=== PATIENT | male | born 1940 | race Caucasian/White ===

== ENCOUNTER 2016-09-05 20:26 | Emergency (ER) | payer MEDICARE, BC ==
--- NOTE | 2016-09-05 21:03 | EDM.PDOC ---
ED HPI RENAL/ - General Chief Complaint: Genitourinary Problem Stated Complaint: voiding blood Time Seen by Provider: 09/05/16 20:27 Source of Information: Reports: Patient, RN, RN notes reviewed History Limitations: Reports: No limitations - History of Present Illness INITIAL COMMENTS - FREE TEXT/NARRATIVE: Patient presents to the emergency room at [facility] complaining of hematuria. The patient states that he started with dysuria about 3-4 days ago. The patient ignored his symptoms until this evening around 7 PM he noticed blood in the urine. The patient denies any previous history of any UTIs or kidney stones. The patient states he has had increased frequency and urgency. The patient also has bilateral low back pain. No calcium metabolism disorders. No recent Hager catheter or instrumentation. Patient denies any odor to the urine. The patient denies any prostate issues. Timing/Duration: Reports: Getting worse, Gradual onset Quality: Reports: burning Severity: moderate Context: Denies: sick contact, recent surgery, recent trauma, lifting Associated Symptoms: Reports: dysuria, frequency, urgency, blood in urine. Denies: groin pain, testicular pain, penile discharge - Related Data Allergies/ADRs: Allergies Allergy/AdvReac Type Severity Reaction Status Date / Time No Known Allergies Allergy Verified 09/05/16 20:31 Home Meds: Home Meds Aspirin [Adult Low Dose Aspirin EC] 81 mg PO DAILY 09/05/16 [History] Enalapril [Vasotec] 0.5 mg PO BID 09/05/16 [History] Hydrochlorothiazide 0.5 tab PO DAILY 09/05/16 [History] Pravastatin [Pravachol] 1 tab PO DAILY 09/05/16 [History] amLODIPine Besylate [Amlodipine Besylate] 5 mg PO DAILY 09/05/16 [History] traZODone HCl [Trazodone HCl] 1 tab PO BEDTIME 09/05/16 [History] Past Medical History Cardiovascular History: Reports: High cholesterol, Hypertension Oncologic (Cancer) History: Reports: Malignant melanoma Dermatologic History: Reports: Melanoma - Past Surgical History Cardiovascular Surgical History: Reports: Coronary artery bypass GI Surgical History: Reports: Appendectomy Social & Family History - Tobacco Use Smoking Status *Q: Former Smoker Used Tobacco, but Quit: Yes Month Tobacco Last Used: ? Second Hand Smoke Exposure: No ED ROS GENERAL - Review of Systems Review Of Systems: See Below Constitutional: Denies: fever, chills, weakness Respiratory: Denies: Shortness of Breath, Cough Cardiovascular: Denies: Chest pain, Palpitations GI/Abdominal: Denies: Abdominal pain, Nausea, Vomiting : Reports: dysuria, frequency, hematuria, urgency. Denies: discharge, flank pain, urinary retention Skin: Reports: no symptoms Neurological: Reports: No Symptoms ED EXAM, RENAL/ - Physical Exam Exam: See Below Exam Limited By: No limitations General Appearance: alert, no apparent distress Respiratory/Chest: no respiratory distress, lungs clear, normal breath sounds Cardiovascular: regular rate, rhythm GI/Abdominal: normal bowel sounds, soft, non tender (Male) Exam: Deferred Neurological: alert, oriented Skin Exam: Warm, Dry, Intact, Normal color, No rash Course - Vital Signs Last Recorded V/S: Last Vital Signs Temp 36.9 C 09/05/16 20:35 Pulse 64 09/05/16 22:10 Resp 18 09/05/16 22:10 BP 177/82 H 09/05/16 22:10 Pulse Ox 91 L 09/05/16 22:10 - Orders/Labs/Meds Orders: Active Orders 24 hr Category Date Time Status Abdomen Pelvis wo Cont [CT] Stat Exams 09/05/16 21:32 Taken Labs: Laboratory Tests 09/05/16 09/05/16 09/05/16 Range/Units 20:51 21:04 21:04 WBC 7.9 (4.0-10.0) x10^3/uL RBC 5.22 (4.5-6.0) x10^6/uL Hgb 15.6 (14.0-18.0) g/dL Hct 46.6 (40.0-52.0) % MCV 89.3 (78.0-93.0) fL MCH 29.9 (26.0-32.0) pg MCHC 33.5 (32.0-36.0) g/dL RDW Coeff of Ronn 13.3 (10.0-15.0) % Plt Count 168 (130-400) x10^3/uL Neut % (Auto) 67.8 (50.0-80.0) % Lymph % (Auto) 19.9 L (25.0-50.0) % [place] % (Auto) 6.2 (2.0-11.0) % Eos % (Auto) 5.8 H (0.0-4.0) % Baso % (Auto) 0.3 (0.2-1.2) % Sodium 143 (136-145) mmol/L Potassium 3.5 (3.5-5.1) mmol/L Chloride 107 (98-107) mmol/L Carbon Dioxide 26 (21-32) mmol/L BUN 25 H (7-18) mg/dL Creatinine 1.3 (0.70-1.30) mg/dL Est Cr Clr Drug Dosing 39.85 mL/min Estimated GFR (MDRD) 54 Glucose 131 H (74-106) mg/dL Calcium 8.2 L (8.5-10.1) mg/dL Urine Color Red H (YELLOW) Urine Appearance Turbid H (CLEAR) Urine pH 6.0 (5.0-8.0) Ur Specific [place] 1.030 Urine Protein 100 H (NEGATIVE) mg/dL Urine Glucose (UA) Negative (NEGATIVE) mg/dL Urine Ketones Negative (NEGATIVE) mg/dL Urine Occult Blood Large H (NEGATIVE) Urine Nitrite Negative (NEGATIVE) Urine Bilirubin Small H (NEGATIVE) Urine Urobilinogen 0.2 (0.2) EU/dL Ur Leukocyte Esterase Small H (NEGATIVE) Urine RBC Packed (NOT SEEN) /HPF Urine Red Cell Clumps Present Urine WBC 0-5 (NOT SEEN) /HPF Ur Squamous Epith Cells Not seen (NEGATIVE) /HPF Amorphous Sediment Rare Urine Bacteria Rare (NEGATIVE) /HPF Urine Mucus Rare H (NEGATIVE) /LPF - Radiology Interpretation Free Text/Narrative:: See scanned report CT Results Date: 09/05/16 CT Results Time: 22:19 Departure - Departure Time of Disposition: 22:24 Disposition: Home, Self-Care 01 Condition: good Clinical Impression: Bladder mass Referrals: Reina Soares DO [Primary Care Provider] - Forms: ED Department Discharge - Problem List Review Problem List Initiated/Reviewed/Updated: Yes - My Orders Last 24 Hours: My Active Orders 09/05/16 21:32 Abdomen Pelvis wo Cont [CT] Stat - Assessment/Plan Last 24 Hours: My Active Orders 09/05/16 21:32 Abdomen Pelvis wo Cont [CT] Stat
[2016-09-05 22:11] VITALS: BP 177/82
== END 2016-09-05 22:38 | disposition home or self-care (01) ==
LOC: VM.ED 20:26
DX: N32.89 Other specified disorders of bladder (principal); E78.00 Pure hypercholesterolemia, unspecified; I10 Essential (primary) hypertension; Z87.891 Personal history of nicotine dependence; Z90.49 Acquired absence of other specified parts of digestive tract
CPT/HCPCS: 36415; 74176; 80048; 81001; 85025; 99282-GF; 99284

== ENCOUNTER 2017-07-10 14:56 | Emergency (ER) | payer MEDICARE, BC ==
[2017-07-10] MEDS ORDERED: GI Cocktail Oral Solution 30 ML PO ONE (15:18)
[2017-07-10] MEDS ORDERED: Sodium Chloride 0.9% 10 ML Syringe FLUSH PRN (15:18)
[2017-07-10] MEDS ORDERED: Iopamidol 612 MG/ML 100 ML Bottle IVPUSH ONE (17:08)
[2017-07-10] MEDS ORDERED: HYDROmorphone 1 MG/ML Syringe IVPUSH ONE (18:21)
[2017-07-10] MEDS ORDERED: Ondansetron 4 MG/2 ML SDV IVPUSH ONE (18:21)
[2017-07-10] MEDS ORDERED: Heparin Sodium/0.45% NaCl 25,000 UNITS/500 ML BAG IV STA (18:43)
[2017-07-10 18:45] VITALS: BP 147/84
[2017-07-10] MEDS ORDERED: Heparin Sodium 5,000 Units/ML Vial IVPUSH ONE (18:45)
[2017-07-10] MEDS ORDERED: Metoclopramide 10 MG/2 ML SDV IVPUSH ONE (18:51)
--- NOTE | 2017-07-10 19:23 | EDM.PDOC ---
ED HPI GENERAL MEDICAL PROBLEM - General Chief Complaint: Abdominal Pain Stated Complaint: abd pain Time Seen by Provider: 07/10/17 15:07 Source of Information: Reports: Patient History Limitations: Reports: No Limitations - History of Present Illness INITIAL COMMENTS - FREE TEXT/NARRATIVE: Pt. presents to ER with complaints of upper abdominal pain, radiating circumfrentially into his mid back. Pt. states that this discomfort started at approx. [id number] this AM. He states that the discomfort does not radiate elsewhere. He is not short of breath. He denies any fever or chills. Denies any substernal chest pain. Pt. has a history of CA wish CABG in 1997. He states that he has some CHF. He states that he is nauseated but denies vomiting. State that the discomfort "sharp, stabbing" pain. He denies any melena, hematochezia, or hematemesis. Denies any jaundice. Onset: Today Onset Date: 07/10/17 Onset Time: 09:00 Location: Reports: Abdomen Severity: Severe Improves with: Reports: Rest Worsens with: Reports: Movement Associated Symptoms: Reports: Nausea/Vomiting. Denies: Diaphoresis, Fever/ Chills, Shortness of Breath Bilateral Upper Abdomen Pain Score (Numeric/FACES): 7 - Related Data Allergies Allergy/AdvReac Type Severity Reaction Status Date / Time atorvastatin [From Lipitor] Allergy Other Verified 07/10/17 15:29 morphine Allergy Hives Verified 07/10/17 15:29 Home Meds: Home Meds Aspirin [Adult Low Dose Aspirin EC] 81 mg PO DAILY 09/05/16 [History] Enalapril [Vasotec] 10 mg PO BID 09/05/16 [History] Hydrochlorothiazide 12.5 mg PO DAILY 09/05/16 [History] Pravastatin [Pravachol] 1 tab PO BEDTIME 09/05/16 [History] amLODIPine Besylate [Amlodipine Besylate] 5 mg PO DAILY 09/05/16 [History] traZODone HCl [Trazodone HCl] 1 tab PO BEDTIME 09/05/16 [History] Clindamycin Phosphate [Cleocin T 1% Gel] 1 applic TOP DAILY 07/10/17 [History] Loratadine [Claritin] 10 mg PO DAILY PRN 07/10/17 [History] Umeclidinium [place] [Incruse Ellipta] 1 puff IH DAILY 07/10/17 [History] Past Medical History HEENT History: Reports: Allergic Rhinitis Cardiovascular History: Reports: Bypass, CAD, High Cholesterol, Hypertension, CA Respiratory History: Reports: COPD Gastrointestinal History: Reports: Diverticulosis, GERD Genitourinary History: Reports: Other (See Below) Other Genitourinary History: Prostatitis Musculoskeletal History: Reports: RA Oncologic (Cancer) History: Reports: Bladder, Malignant Melanoma, Other (See Below) 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 Dermatologic History: Reports: Melanoma - Past Surgical History Cardiovascular Surgical History: Reports: Coronary Artery Bypass GI Surgical History: Reports: Appendectomy Social & Family History - Tobacco Use Smoking Status *Q: Former Smoker Used Tobacco, but Quit: Yes Month Tobacco Last Used: 20 years ago Second Hand Smoke Exposure: No - Recreational Drug Use Recreational Drug Use: No ED ROS GENERAL - Review of Systems Review Of Systems: See Below Constitutional: Reports: No Symptoms HEENT: Reports: No Symptoms Respiratory: Reports: No Symptoms Cardiovascular: Reports: No Symptoms Endocrine: Reports: No Symptoms GI/Abdominal: Reports: Abdominal Pain : Reports: No Symptoms Musculoskeletal: Reports: No Symptoms Skin: Reports: No Symptoms Neurological: Reports: No Symptoms Psychiatric: Reports: No Symptoms Hematologic/Lymphatic: Reports: No Symptoms, Other (No history of hypercoaguable state) Immunologic: Reports: No Symptoms ED EXAM, GENERAL - Physical Exam Exam: See Below Exam Limited By: No Limitations General Appearance: Alert, WD/WN, No Apparent Distress Ears: Normal External Exam, Normal Canal, Hearing Grossly Normal, Normal TMs Nose: Normal Inspection, Normal Mucosa, No Blood Throat/Mouth: Normal Inspection, Normal Lips, Normal Teeth, Normal Gums, Normal Oropharynx, Normal Voice, No Airway Compromise Head: Atraumatic, Normocephalic Neck: Normal Inspection, Supple, Non-Tender, Full Range of Motion Respiratory/Chest: No Respiratory Distress, Lungs Clear, Normal Breath Sounds, No Accessory Muscle Use, Chest Non-Tender Cardiovascular: Normal Peripheral Pulses, Regular Rate, Rhythm, No Edema, No Gallop, No JVD, No Murmur, No Rub Peripheral Pulses: 3+: Femoral (L), Femoral (R) GI/Abdominal: Soft, No Distention, No Abnormal Bruit, Tender, Abnormal Bowel Sounds (diminished). No: Rebound (Male) Exam: Deferred Rectal (Males) Exam: Normal Exam, Normal Rectal Tone, Prostate Normal Back Exam: Normal Inspection, Full Range of Motion, NT Extremities: Normal Inspection, Normal Range of Motion, Non-Tender, Normal Capillary Refill, No Pedal Edema Neurological: Alert, Oriented, CN II-XII Intact, Normal Cognition, Normal Gait, Normal Reflexes, No Motor/Sensory Deficits Psychiatric: Normal Affect, Normal Mood Skin Exam: Warm, Dry, Intact, Normal Color, No Rash Lymphatic: No Adenopathy EKG INTERPRETATION Rhythm: NSR [place]: Normal P-Wave: Present QRS: Normal ST-T: Normal QT: Normal Course - Vital Signs Last Recorded V/S: Last Vital Signs Temp 36.8 C 07/10/17 15:03 Pulse 60 07/10/17 18:44 Resp 15 07/10/17 18:44 BP 147/84 H 07/10/17 18:44 Pulse Ox 90 L 07/10/17 18:44 - Orders/Labs/Meds Orders: Active Orders 24 hr Category Date Time Status EKG Documentation Completion [RC] STAT Care 07/10/17 15:18 Active Abdomen Series w Chest 1V [CR] Stat Exams 07/10/17 15:16 Taken Chest Abdomen Pelvis w Cont [CT] Stat Exams 07/10/17 16:24 Taken CBC W/O DIFF,HEMOGRAM [HEME] Q3D Lab 07/11/17 07:00 Ordered CBC W/O DIFF,HEMOGRAM [HEME] Q3D Lab 07/14/17 07:00 Ordered CBC W/O DIFF,HEMOGRAM [HEME] Q3D Lab 07/17/17 07:00 Ordered CBC W/O DIFF,HEMOGRAM [HEME] Q3D Lab 07/20/17 07:00 Ordered CBC W/O DIFF,HEMOGRAM [HEME] Q3D Lab 07/23/17 07:00 Ordered CBC W/O DIFF,HEMOGRAM [HEME] Q3D Lab 07/26/17 07:00 Ordered CBC W/O DIFF,HEMOGRAM [HEME] Q3D Lab 07/29/17 07:00 Ordered Heparin Sodium/0.45% NaCl [Heparin 25,000 Units in 1/2 Med 07/10/17 18:43 Active NS 500 ML] 25,000 units in 500 ml IV NOW Sodium Chloride 0.9% [Saline Flush] Med 07/10/17 15:18 Active 10 ml FLUSH ASDIRECTED PRN Peripheral IV Insertion Adult [OM.PC] Routine Oth 07/10/17 15:19 Ordered Medication Orders Heparin Sodium/Sodium Chloride (Heparin 25,000 Units In 1/2 Ns 500 Ml) 25,000 units in 500 mls @ 20 mls/hr IV NOW STA PRN Reason: Protocol Stop: 07/11/17 19:42 Last Admin: 07/10/17 19:09 Dose: 20 mls/hr, 20 mls/hr Sodium Chloride (Saline Flush) 10 ml FLUSH ASDIRECTED PRN PRN Reason: Keep Vein Open Last Admin: 07/10/17 15:52 Dose: 10 ml Labs: Laboratory Tests 07/10/17 07/10/17 07/10/17 Range/Units 15:52 15:52 15:52 WBC 8.1 (4.0-10.0) x10^3/uL RBC 5.44 (4.5-6.0) x10^6/uL Hgb 17.0 (14.0-18.0) g/dL Hct 49.1 (40.0-52.0) % MCV 90.3 (78.0-93.0) fL MCH 31.3 (26.0-32.0) pg MCHC 34.6 (32.0-36.0) g/dL RDW Coeff of Ronn 13.1 (10.0-15.0) % Plt Count 170 (130-400) x10^3/uL Neut % (Auto) 67.3 (50.0-80.0) % Lymph % (Auto) 22.6 L (25.0-50.0) % [place] % (Auto) 4.1 (2.0-11.0) % Eos % (Auto) 5.9 H (0.0-4.0) % Baso % (Auto) 0.1 L (0.2-1.2) % PT 11.4 (9.8-11.8) SEC INR 1.1 L (2.0-3.5) Sodium 142 (136-145) mmol/L Potassium 3.7 (3.5-5.1) mmol/L Chloride 107 (98-107) mmol/L Carbon Dioxide 25 (21-32) mmol/L BUN 17 (7-18) mg/dL Creatinine 1.2 (0.70-1.30) mg/dL Est Cr Clr Drug Dosing 49.88 mL/min Estimated GFR (MDRD) 59 Glucose 117 H (74-106) mg/dL Calcium 8.6 (8.5-10.1) mg/dL Corrected Calcium 9.00 (8.5-10.1) mg/dL Total Bilirubin 0.7 (0.2-1.0) mg/dL AST 24 (15-37) U/L ALT 47 (16-63) U/L Alkaline Phosphatase 45 L (46-116) U/L POC Troponin I (0.00-0.08) ng/mL C-Reactive Protein 0.4 (<=0.9) mg/dL Total Protein 7.0 (6.4-8.2) g/dL Albumin 3.5 (3.4-5.0) g/dL Globulin 3.5 Albumin/Globulin Ratio 1.00 Amylase (25-115) U/L Lipase (73-393) U/L 07/10/17 07/10/17 Range/Units 15:52 15:58 WBC (4.0-10.0) x10^3/uL RBC (4.5-6.0) x10^6/uL Hgb (14.0-18.0) g/dL Hct (40.0-52.0) % MCV (78.0-93.0) fL MCH (26.0-32.0) pg MCHC (32.0-36.0) g/dL RDW Coeff of [place] (10.0-15.0) % Plt Count (130-400) x10^3/uL Neut % (Auto) (50.0-80.0) % Lymph % (Auto) (25.0-50.0) % [place] % (Auto) (2.0-11.0) % Eos % (Auto) (0.0-4.0) % Baso % (Auto) (0.2-1.2) % PT (9.8-11.8) SEC INR (2.0-3.5) Sodium (136-145) mmol/L Potassium (3.5-5.1) mmol/L Chloride (98-107) mmol/L Carbon Dioxide (21-32) mmol/L BUN (7-18) mg/dL Creatinine (0.70-1.30) mg/dL Est Cr Clr Drug Dosing mL/min Estimated GFR (MDRD) Glucose (74-106) mg/dL Calcium (8.5-10.1) mg/dL Corrected Calcium (8.5-10.1) mg/dL Total Bilirubin (0.2-1.0) mg/dL AST (15-37) U/L ALT (16-63) U/L Alkaline Phosphatase (46-116) U/L POC Troponin I 0.02 (0.00-0.08) ng/mL C-Reactive Protein (<=0.9) mg/dL Total Protein (6.4-8.2) g/dL Albumin (3.4-5.0) g/dL Globulin Albumin/Globulin Ratio Amylase 91 (25-115) U/L Lipase 77 (73-393) U/L Meds: Medications Generic Name Dose Route Start Last Admin Trade Name Luis PRN Reason Stop Dose Admin Heparin Sodium/Sodium Chloride 25,000 units in 500 mls @ 20 mls/hr 07/10/17 18 :43 07/10/17 19:09 Heparin 25,000 Units In 1/2 Ns 500 Ml IV 07/11/17 19:42 20 mls/hr NOW STA 20 mls/hr Protocol Administration Sodium Chloride 10 ml 07/10/17 15:18 07/10/17 15:52 Saline Flush FLUSH 10 ml ASDIRECTED PRN Administration Keep Vein Open Discontinued Medications Generic Name Dose Route Start Last Admin Trade Name Luis PRN Reason Stop Dose Admin Al Hydroxide/Mg Hydroxide 30 ml 07/10/17 15:18 07/10/17 15:38 Gi Cocktail PO 07/10/17 15:19 30 ml ONETIME ONE Administration Heparin Sodium (Porcine) 4,000 units 07/10/17 18:45 07/10/17 18:59 Heparin Sodium IVPUSH 07/10/17 18:46 4,000 units .BOLUS ONE Administration Hydromorphone HCl 1 mg 07/10/17 18:21 07/10/17 18:30 Dilaudid IVPUSH 07/10/17 18:22 1 mg ONETIME ONE Administration Iopamidol 100 ml 07/10/17 17:08 07/10/17 17:40 Isovue-300 (61%) IVPUSH 07/10/17 17:09 100 ml ONETIME ONE Administration Metoclopramide HCl 5 mg 07/10/17 18:51 07/10/17 18:56 Reglan IVPUSH 07/10/17 18:52 5 mg ONETIME ONE Administration Ondansetron HCl 4 mg 07/10/17 18:21 07/10/17 18:27 Zofran IVPUSH 07/10/17 18:22 4 mg ONETIME ONE Administration - Radiology Interpretation Free Text/Narrative:: Ileus, evidence of splenic infarct. 3.5cm AAA. Departure - Departure Time of Disposition: 19:29 Disposition: Home, Self-Care 01 Condition: Serious Clinical Impression: Splenic infarct - Discharge Information Referrals: Reina Soares DO [Primary Care Provider] - Forms: ED Department Discharge, Interfacility Transfer EMTALA - My Orders Last 24 Hours: My Active Orders 07/10/17 15:16 Abdomen Series w Chest 1V [CR] Stat 07/10/17 15:18 EKG Documentation Completion [RC] STAT Sodium Chloride 0.9% [Saline Flush] 10 ml FLUSH ASDIRECTED PRN 07/10/17 15:19 Peripheral IV Insertion Adult [OM.PC] Routine 07/10/17 16:24 Chest Abdomen Pelvis w Cont [CT] Stat 07/10/17 18:43 Heparin Sodium/0.45% NaCl [Heparin 25,000 Units in 1/2 NS 500 ML] 25,000 units in 500 ml IV NOW 07/11/17 07:00 CBC W/O DIFF,HEMOGRAM [HEME] Q3D 07/14/17 07:00 CBC W/O DIFF,HEMOGRAM [HEME] Q3D 07/17/17 07:00 CBC W/O DIFF,HEMOGRAM [HEME] Q3D 07/20/17 07:00 CBC W/O DIFF,HEMOGRAM [HEME] Q3D 07/23/17 07:00 CBC W/O DIFF,HEMOGRAM [HEME] Q3D 07/26/17 07:00 CBC W/O DIFF,HEMOGRAM [HEME] Q3D 07/29/17 07:00 CBC W/O DIFF,HEMOGRAM [HEME] Q3D - Assessment/Plan Last 24 Hours: My Active Orders 07/10/17 15:16 Abdomen Series w Chest 1V [CR] Stat 07/10/17 15:18 EKG Documentation Completion [RC] STAT Sodium Chloride 0.9% [Saline Flush] 10 ml FLUSH ASDIRECTED PRN 07/10/17 15:19 Peripheral IV Insertion Adult [OM.PC] Routine 07/10/17 16:24 Chest Abdomen Pelvis w Cont [CT] Stat 07/10/17 18:43 Heparin Sodium/0.45% NaCl [Heparin 25,000 Units in 1/2 NS 500 ML] 25,000 units in 500 ml IV NOW 07/11/17 07:00 CBC W/O DIFF,HEMOGRAM [HEME] Q3D 07/14/17 07:00 CBC W/O DIFF,HEMOGRAM [HEME] Q3D 07/17/17 07:00 CBC W/O DIFF,HEMOGRAM [HEME] Q3D 07/20/17 07:00 CBC W/O DIFF,HEMOGRAM [HEME] Q3D 07/23/17 07:00 CBC W/O DIFF,HEMOGRAM [HEME] Q3D 07/26/17 07:00 CBC W/O DIFF,HEMOGRAM [HEME] Q3D 07/29/17 07:00 CBC W/O DIFF,HEMOGRAM [HEME] Q3D
== END 2017-07-10 19:32 | disposition home or self-care (01) ==
LOC: VM.ED 14:56
DX: I74.8 Embolism and thrombosis of other arteries (principal); I10 Essential (primary) hypertension; I25.10 Atherosclerotic heart disease of native coronary artery without angina pectoris; E78.00 Pure hypercholesterolemia, unspecified; J44.9 Chronic obstructive pulmonary disease, unspecified; K21.9 Gastro-esophageal reflux disease without esophagitis; Z95.1 Presence of aortocoronary bypass graft; Z87.891 Personal history of nicotine dependence; Z79.82 Long term (current) use of aspirin; Z79.2 Long term (current) use of antibiotics; Z79.899 Other long term (current) drug therapy; Z88.5 Allergy status to narcotic agent; Z88.8 Allergy status to other drugs, medicaments and biological substances
CPT/HCPCS: 36415; 71260; 74022; 74177; 80053; 82150; 83690; 84484; 85025; 85610; 86140; 93005; 96365; 96375; 96376; 99285; A9270-GY; J1170; J1644; J2405; J2765; J7050; Q9967

== ENCOUNTER 2020-04-06 15:16 | Emergency (ER) | payer MEDICARE, BC ==
[2020-04-06] MEDS ORDERED: Sodium Chloride 0.9% 10 ML Syringe FLUSH PRN (15:19)
--- NOTE | 2020-04-06 15:19 | EDM.PDOC ---
ED HPI GENERAL MEDICAL PROBLEM - General Stated Complaint: COVID SYMPTOMS Time Seen by Provider: 04/06/20 15:19 Source of Information: Reports: Patient History Limitations: Reports: No Limitations - History of Present Illness INITIAL COMMENTS - FREE TEXT/NARRATIVE: Patient comes emergency department today with complaints of generalized weakness. This patient reports about 3 weeks ago he was tested for Covid after he was exposed to one of his friends that had it. His test was negative although he was tested only a couple of days after his exposure to his friend. He has had continued weakness over the past 3 weeks. He has had no other symptoms other than weakness He has no cough no shortness of breath sinus congestion drainage. No difficulty breathing. No dizziness no syncope no palpitation. No pain in his chest. No fever no chills. No abdominal pain no nausea or vomiting. No hematuria dysuria or urinary frequency. He really has no appetite. He ate a banana and a half of a sandwich yesterday. He drinks about 1 to 2 glasses of water a day. He has been seen in the clinic 2 times in the last couple of weeks for the same symptoms. He reports that he did not have any laboratory evaluation. He was placed on doxycycline because he is weak. He did not get his influenza vaccine this year. He has not been eating or drinking for weeks because he just has no appetite. - Related Data Allergies Allergy/AdvReac Type Severity Reaction Status Date / Time atorvastatin [From Lipitor] Allergy Other Verified 04/06/20 18:06 morphine Allergy Hives Verified 04/06/20 18:06 Home Meds: Home Meds Aspirin [Adult Low Dose Aspirin EC] 81 mg PO DAILY 09/05/16 [History] Enalapril [Vasotec] 20 mg PO BID 09/05/16 [History] amLODIPine Besylate [Amlodipine Besylate] 2.5 mg PO DAILY 09/05/16 [History] traZODone HCl [Trazodone HCl] 1 tab PO BEDTIME 09/05/16 [History] Clindamycin Phosphate [Cleocin T 1% Gel] 1 applic TOP DAILY 07/10/17 [History] Loratadine [Claritin] 10 mg PO DAILY PRN 07/10/17 [History] Cholecalciferol (Vitamin D3) [Vitamin D3] 1,000 unit PO DAILY 04/06/20 [History] Fish Oil/[place]-3 Fatty Acids [Fish Oil 1,000 MG] 1 each PO DAILY 04/06/20 [History] Omeprazole 20 mg PO DAILY 04/06/20 [History] Rosuvastatin [Crestor] 10 mg PO DAILY 04/06/20 [History] Triamterene/Hydrochlorothiazid [Triamterene-HCTZ 37.5-25 MG] 1 tab PO DAILY 04/06/20 [History] Warfarin [Coumadin] 2.5 mg PO ASDIRECTED 04/06/20 [History] Past Medical History HEENT History: Reports: Allergic Rhinitis Cardiovascular History: Reports: Bypass, CAD, High Cholesterol, Hypertension, NM Respiratory History: Reports: COPD Gastrointestinal History: Reports: Diverticulosis, GERD Genitourinary History: Reports: Other (See Below) Other Genitourinary History: Prostatitis Musculoskeletal History: Reports: RA Oncologic (Cancer) History: Reports: Bladder, Malignant Melanoma, Other (See Below) 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 Dermatologic History: Reports: Melanoma - Past Surgical History Cardiovascular Surgical History: Reports: Coronary Artery Bypass GI Surgical History: Reports: Appendectomy ED ROS GENERAL - Review of Systems Review Of Systems: Comprehensive ROS is negative, except as noted in HPI. ED EXAM, GENERAL - Physical Exam Exam: See Below Exam Limited By: No Limitations General Appearance: Alert, WD/WN, No Apparent Distress Eye Exam: Bilateral Eye: EOMI Ears: Normal External Exam Nose: Normal Inspection, Normal Mucosa Throat/Mouth: Normal Inspection, Normal Lips, Normal Oropharynx, Normal Voice Head: Atraumatic, Normocephalic Neck: Normal Inspection, Supple, Non-Tender, Full Range of Motion Respiratory/Chest: No Respiratory Distress, Lungs Clear, Normal Breath Sounds, No Accessory Muscle Use, Chest Non-Tender Cardiovascular: Normal Peripheral Pulses, Regular Rate, Rhythm Peripheral Pulses: 2+: Radial (L), Radial (R), Posterior Tibial (L), Posterior Tibial (R), Dorsalis Pedis (L), Dorsalis Pedis (R) GI/Abdominal: Normal Bowel Sounds, Soft, Non-Tender, No Distention, No Mass, Pelvis Stable (Male) Exam: Deferred Rectal (Males) Exam: Deferred Back Exam: Normal Inspection, Full Range of Motion Extremities: Normal Inspection, Normal Range of Motion, Normal Capillary Refill Neurological: Alert, Oriented, CN II-XII Intact, Normal Cognition, Normal Gait, No Motor/Sensory Deficits Psychiatric: Normal Affect, Normal Mood Skin Exam: Warm, Dry, Intact, Normal Color, No Rash #1 Interpretation EKG Date: 04/06/20 Time: 15:53 Rhythm: NSR Rate (Beats/Min): 67 [place]: Normal P-Wave: Present QRS: Normal ST-T: Normal QT: Normal Comparison: No Change Course - Vital Signs Last Recorded V/S: Last Vital Signs Temp 98.1 F 04/06/20 15:20 Pulse 60 04/06/20 18:25 Resp 16 04/06/20 18:25 BP 130/68 04/06/20 18:25 Pulse Ox 93 L 04/06/20 18:25 - Orders/Labs/Meds Labs: Laboratory Tests 04/06/20 04/06/20 04/06/20 Range/Units 15:31 15:50 15:50 WBC 5.3 (4.0-10.0) x10^3/uL RBC 4.31 L (4.5-6.0) x10^6/uL Hgb 14.1 D (14.0-18.0) g/dL Hct 41.9 (40.0-52.0) % MCV 97.2 H D (78.0-93.0) fL MCH 32.7 H (26.0-32.0) pg MCHC 33.7 (32.0-36.0) g/dL RDW Coeff of Ronn 13.6 (10.0-15.0) % Plt Count 269 D (130-400) x10^3/uL Neut % (Auto) 52.5 (50.0-80.0) % Lymph % (Auto) 30.6 (25.0-50.0) % [place] % (Auto) 16.1 H (2.0-11.0) % Eos % (Auto) 0.2 (0.0-4.0) % Baso % (Auto) 0.6 (0.2-1.2) % Sodium 138 (136-145) mmol/L Potassium 3.6 (3.5-5.1) mmol/L Chloride 101 (98-107) mmol/L Carbon Dioxide 27 (21-32) mmol/L Anion Gap 13.6 (10-20) mmol/L BUN 47 H D (7-18) mg/dL Creatinine 2.0 H (0.70-1.30) mg/dL Est Cr Clr Drug Dosing TNP Estimated GFR (MDRD) 32 Glucose 107 H (74-106) mg/dL Lactic Acid (0.4-2.0) mmol/L Calcium 9.2 (8.5-10.1) mg/dL Corrected Calcium 10.00 (8.5-10.1) mg/dL Total Bilirubin 0.6 (0.2-1.0) mg/dL AST 23 (15-37) U/L ALT 33 (16-63) U/L Alkaline Phosphatase 36 L (46-116) U/L Troponin I < 0.017 (<=0.056) ng/mL C-Reactive Protein 3.3 H (<=0.9) mg/dL Total Protein 7.2 (6.4-8.2) g/dL Albumin 3.0 L (3.4-5.0) g/dL Globulin 4.2 Albumin/Globulin Ratio 0.71 Urine Color (YELLOW) Urine Appearance (CLEAR) Urine pH (5.0-8.0) Ur Specific [place] Urine Protein (NEGATIVE) mg/dL Urine Glucose (UA) (NEGATIVE) mg/dL Urine Ketones (NEGATIVE) mg/dL Urine Occult Blood (NEGATIVE) Urine Nitrite (NEGATIVE) Urine Bilirubin (NEGATIVE) Urine Urobilinogen (0.2) EU/dL Ur Leukocyte Esterase (NEGATIVE) SARS CoV-2 RNA Rapid TONE Negative (NEGATIVE) 04/06/20 04/06/20 Range/Units 15:50 15:55 WBC (4.0-10.0) x10^3/uL RBC (4.5-6.0) x10^6/uL Hgb (14.0-18.0) g/dL Hct (40.0-52.0) % MCV (78.0-93.0) fL MCH (26.0-32.0) pg MCHC (32.0-36.0) g/dL RDW Coeff of Ronn (10.0-15.0) % Plt Count (130-400) x10^3/uL Neut % (Auto) (50.0-80.0) % Lymph % (Auto) (25.0-50.0) % [place] % (Auto) (2.0-11.0) % Eos % (Auto) (0.0-4.0) % Baso % (Auto) (0.2-1.2) % Sodium (136-145) mmol/L Potassium (3.5-5.1) mmol/L Chloride (98-107) mmol/L Carbon Dioxide (21-32) mmol/L Anion Gap (10-20) mmol/L BUN (7-18) mg/dL Creatinine (0.70-1.30) mg/dL Est Cr Clr Drug Dosing Estimated GFR (MDRD) Glucose (74-106) mg/dL Lactic Acid 1.6 (0.4-2.0) mmol/L Calcium (8.5-10.1) mg/dL Corrected Calcium (8.5-10.1) mg/dL Total Bilirubin (0.2-1.0) mg/dL AST (15-37) U/L ALT (16-63) U/L Alkaline Phosphatase (46-116) U/L Troponin I (<=0.056) ng/mL C-Reactive Protein (<=0.9) mg/dL Total Protein (6.4-8.2) g/dL Albumin (3.4-5.0) g/dL Globulin Albumin/Globulin Ratio Urine Color Dark yellow H (YELLOW) Urine Appearance Slightly cloudy H (CLEAR) Urine pH 5.5 (5.0-8.0) Ur Specific [place] 1.020 Urine Protein Negative (NEGATIVE) mg/dL Urine Glucose (UA) Negative (NEGATIVE) mg/dL Urine Ketones Negative (NEGATIVE) mg/dL Urine Occult Blood Negative (NEGATIVE) Urine Nitrite Negative (NEGATIVE) Urine Bilirubin Negative (NEGATIVE) Urine Urobilinogen 0.2 (0.2) EU/dL Ur Leukocyte Esterase Negative (NEGATIVE) SARS CoV-2 RNA Rapid TONE (NEGATIVE) Meds: Medications Discontinued Medications Generic Name Dose Route Start Last Admin Trade Name Freq PRN Reason Stop Dose Admin Lactated Ringer's 1,000 mls @ 999 mls/hr 04/06/20 16:05 04/06/20 16:05 Ringers, Lactated IV 04/06/20 17:05 999 mls/hr ONETIME ONE Administration Sodium Chloride 10 ml 04/06/20 15:19 Saline Flush FLUSH ASDIRECTED PRN Keep Vein Open - Re-Assessments/Exams Free Text/Narrative Re-Assessment/Exam: The patient is clearly stress at this time. He appears mildly toxic. Laboratory evaluation to include swabs for influenza and Covid. His EKG is unremarkable. Werner virus is negative. Influenza is positive. Blood cell count 5.3 with hemoglobin 14.1 and platelet of 69, Sodium potassium are normal. His creatinine is 3.0 and he appears that his baseline is about 1.2-1.4. He has a current BUN of 47. Liver enzymes are rather unremarkable. Troponin less than 0.017. C-reactive protein 3.3. Urinalysis negative for infectious process. The patient was started with an IV LR 250 mill bolus and then continued over the next multiple hours. He was monitored closely in the emergency department. Maintained the same physical symptoms vital signs of as similar to arrival. He was able to urinate while he was in the ER. He drank multiple glasses of water. He received an entire liter of LR. He does feel quite a bit better and not as weak. He would like to go home. I did offer observation for him overnight to ensure that he has good hydration as well as repeat his labs to show that he has improvement of his acute kidney injury. He really does not want to do this tonight. Which I think is appropriate as he is not been drinking fluids at home. We will discharge him home with close follow-up with primary care. I discussed at length importance for him not only eat small frequent meals but also to ensure that he is drinking plenty of fluids. He is comfortable with this plan his questions were answered. I also advised him that it would be prudent for him to get a yearly influenza vaccine to prevent this in the future. Departure - Departure Time of Disposition: 19:24 Disposition: Home, Self-Care 01 Clinical Impression: Influenza B, LIZ (acute kidney injury), Dehydration - Discharge Information Instructions: Influenza, Adult, [id number], Dehydration, Adult, [id number], Dehydration, Elderly, [id number] Referrals: Reina Soares, [Primary Care Provider] - Forms: ED Department Discharge Additional Instructions: Home rest. You need to really focus on drinking more fluids at home when you get home. If you are not urinating every 2 hrs you are not drinking enough fluids. Make sure and eat regular small meals. Consider getting the yearly influenza vaccine. Recheck in the clinic tuesday or tuesday for labs to be checked. Return to the ED if new or worsening symptoms.
[2020-04-06] MEDS ORDERED: Lactated Ringers 1,000 ML IV ONE (16:05)
[2020-04-06 16:31] LABS: CHLORIDE,CL 101 mmol/L (98-107); SODIUM,NA 138 mmol/L (136-145)
[2020-04-06 16:33] LABS: ANION GAP 13.6 mmol/L (10-20)
[2020-04-06 18:26] VITALS: BP 130/68; PULSE 60
== END 2020-04-06 19:40 | disposition home or self-care (01) ==
LOC: VM.ED 15:16
DX: E86.0 Dehydration (principal); J10.1 Influenza due to other identified influenza virus with other respiratory manifestations; N17.9 Acute kidney failure, unspecified; I25.10 Atherosclerotic heart disease of native coronary artery without angina pectoris; E78.00 Pure hypercholesterolemia, unspecified; I10 Essential (primary) hypertension; I25.2 Old myocardial infarction; J44.9 Chronic obstructive pulmonary disease, unspecified; K21.9 Gastro-esophageal reflux disease without esophagitis; M06.9 Rheumatoid arthritis, unspecified; Z88.8 Allergy status to other drugs, medicaments and biological substances; Z88.5 Allergy status to narcotic agent; Z79.82 Long term (current) use of aspirin; Z79.899 Other long term (current) drug therapy; Z20.828 Contact with and (suspected) exposure to other viral communicable diseases
CPT/HCPCS: 80053; 81003; 83605; 84484; 85025; 86140; 87804; 87804-59; 93005; 99284; 99285-25; J7120; U0002

== ENCOUNTER 2023-12-27 09:01 | Emergency (ER) | payer MEDICARE, BC ==
[2023-12-27] MEDS: Albuterol 0.083% 2.5 MG/3 ML Neb Soln NEB ONE (09:01)
[2023-12-27 09:48] LABS: BASOPHILS PERCENT AUTO 0.2 % (0.2-1.2); EOSINOPHILS ABSOLUTE AUTO 0.1 x10^3/uL (0.0-0.5); EOSINOPHILS PERCENT AUTO 1.2 % (0.0-4.0); HEMATOCRIT 35.8 % (40.0-52.0); HEMOGLOBIN 11.6 g/dL (14.0-18.0); IMMATURE GRAN ABSOLUTE AUTO 0.05 x10^3/uL (0.00-0.07); LYMPHOCYTES ABSOLUTE AUTO 1.3 x10^3/uL (1.0-4.8); LYMPHOCYTES PERCENT AUTO 13.3 % (25.0-50.0); MEAN CORPUSCULAR HEMOGLOBIN 32.1 pg (26.0-32.0); MEAN CORPUSCULAR HGB CONC 32.4 g/dL (32.0-36.0); MEAN CORPUSCULAR VOLUME 99.2 fL (78.0-93.0); MONOCYTES ABSOLUTE AUTO 1.1 x10^3/uL (0.0-0.8); MONOCYTES PERCENT AUTO 11.3 % (2.0-11.0); NEUTROPHILS ABSOLUTE AUTO 6.9 x10^3/uL (1.8-7.7); NEUTROPHILS PERCENT AUTO 73.5 % (50.0-80.0); PLATELET COUNT,PLT 177 x10^3/uL (130-400); RED BLOOD CELL COUNT 3.61 x10^6/uL (4.5-6.0); WHITE BLOOD CELL COUNT,WBC 9.4 x10^3/uL (4.0-10.0)
[2023-12-27 09:58] LABS: INR 2.2 (0.9-1.1); PROTHROMBIN TIME 21.3 SEC (8.9-11.5)
[2023-12-27 10:05] LABS: A/G RATIO 0.8; ALBUMIN 2.8 g/dL (3.4-5.0); BILIRUBIN TOTAL 0.7 mg/dL (0.2-1.0); CALCIUM 8.3 mg/dL (8.5-10.1); CREATININE 1.2 mg/dL (0.70-1.30); EST CRCL DRUG DOSING (CG) 39.86 mL/min; POTASSIUM,K 3.8 mmol/L (3.5-5.1); PROTEIN TOTAL,TP 6.3 g/dL (6.4-8.2)
[2023-12-27 10:06] LABS: ANION GAP 14.8 mmol/L (5-15)
[2023-12-27] MEDS: Albuterol/Ipratropium 3.0-0.5 MG/3 ML Neb Soln NEB ONE (10:10)
[2023-12-27 10:25] LABS: CORONAVIRUS COVID-19 NAA NEGATIVE (NEGATIVE); INFLUENZA A NAA NEGATIVE (NEGATIVE); INFLUENZA B NAA NEGATIVE (NEGATIVE); RESPIRATORY SYNCYTIAL VIR NAA NEGATIVE (NEGATIVE)
[2023-12-27] MEDS: cefTRIAXone 1 GM Vial IVPUSH ONE (11:45)
[2023-12-27] MEDS: methylPREDNISolone Sodium Succinate 40 MG/1 ML SDV IVPUSH ONE (12:00)
[2023-12-27 12:11] VITALS: PULSE 71
[2023-12-27 12:13] VITALS: BP 135/55
== END 2023-12-27 12:36 | disposition home or self-care (01) ==
LOC: VM.ED 09:01
DX: J44.1 Chronic obstructive pulmonary disease with (acute) exacerbation (principal); I10 Essential (primary) hypertension; I25.10 Atherosclerotic heart disease of native coronary artery without angina pectoris; I25.2 Old myocardial infarction; K21.9 Gastro-esophageal reflux disease without esophagitis; Z95.1 Presence of aortocoronary bypass graft; Z79.899 Other long term (current) drug therapy; Z79.01 Long term (current) use of anticoagulants; Z88.8 Allergy status to other drugs, medicaments and biological substances
CPT/HCPCS: 0241U; 36415; 71045; 80053; 85025; 85610; 96374; 96375; 99284; 99285-25; J0696; J2919; J7613-GY; J7620-GY

== ENCOUNTER 2024-09-19 10:40 | Emergency (ER) | payer MEDICARE, BC ==
[2024-09-19] MEDS: Aspirin 81 MG Tab.Chew PO ONE (10:49)
[2024-09-19] MEDS ORDERED: Sodium Chloride 0.9% 10 ML Syringe FLUSH PRN (10:49)
[2024-09-19 11:10] LABS: BASOPHILS PERCENT AUTO 0.3 % (0.2-1.2); EOSINOPHILS ABSOLUTE AUTO 0.6 x10^3/uL (0.0-0.5); EOSINOPHILS PERCENT AUTO 9.5 % (0.0-4.0); HEMATOCRIT 40.1 % (40.0-52.0); IMMATURE GRAN ABSOLUTE AUTO 0.02 x10^3/uL (0.00-0.07); LYMPHOCYTES ABSOLUTE AUTO 1.8 x10^3/uL (1.0-4.8); LYMPHOCYTES PERCENT AUTO 27.3 % (25.0-50.0); MEAN CORPUSCULAR HEMOGLOBIN 33.7 pg (26.0-32.0); MEAN CORPUSCULAR HGB CONC 32.4 g/dL (32.0-36.0); MEAN CORPUSCULAR VOLUME 103.9 fL (78.0-93.0); MONOCYTES ABSOLUTE AUTO 0.6 x10^3/uL (0.0-0.8); MONOCYTES PERCENT AUTO 9.3 % (2.0-11.0); NEUTROPHILS ABSOLUTE AUTO 3.6 x10^3/uL (1.8-7.7); NEUTROPHILS PERCENT AUTO 53.3 % (50.0-80.0); PLATELET COUNT,PLT 149 x10^3/uL (130-400); RED BLOOD CELL COUNT 3.86 x10^6/uL (4.5-6.0); WHITE BLOOD CELL COUNT,WBC 6.7 x10^3/uL (4.0-10.0)
[2024-09-19 11:28] LABS: INR 2.5 (0.9-1.1); PROTHROMBIN TIME 25.7 SEC (9.6-12.0)
[2024-09-19 11:38] LABS: A/G RATIO 0.81; ALBUMIN 2.9 g/dL (3.4-5.0); BILIRUBIN TOTAL 0.5 mg/dL (0.2-1.0); CALCIUM 8.6 mg/dL (8.5-10.1); CREATININE 1.4 mg/dL (0.70-1.30); EST CRCL DRUG DOSING (CG) 34.81 mL/min; MAGNESIUM 1.9 mg/dL (1.8-2.4); POTASSIUM,K 3.2 mmol/L (3.5-5.1); PROTEIN TOTAL,TP 6.5 g/dL (6.4-8.2)
[2024-09-19 11:39] LABS: ANION GAP 8.2 mmol/L (5-15)
[2024-09-19] MEDS: Potassium Chloride 20 MEQ Tab.ER PO ONE (11:57)
[2024-09-19] MEDS: Heparin Sodium/0.45% NaCl 25,000 UNITS/250 ML BAG IV SCH (12:06)
[2024-09-19] MEDS: Heparin Sodium 5,000 Units/ML Vial IVPUSH ONE (12:06)
[2024-09-19 13:08] VITALS: BP 130/64; PULSE 63
== END 2024-09-19 13:39 | disposition short-term general hospital (02) ==
LOC: VM.ED 10:40
DX: I21.4 Non-ST elevation (NSTEMI) myocardial infarction (principal); I25.10 Atherosclerotic heart disease of native coronary artery without angina pectoris; I25.2 Old myocardial infarction; E78.00 Pure hypercholesterolemia, unspecified; I10 Essential (primary) hypertension; J44.9 Chronic obstructive pulmonary disease, unspecified; Z95.1 Presence of aortocoronary bypass graft; Z79.899 Other long term (current) drug therapy; Z79.01 Long term (current) use of anticoagulants; Z88.5 Allergy status to narcotic agent; Z88.8 Allergy status to other drugs, medicaments and biological substances
CPT/HCPCS: 71045; 80053; 83690; 83735; 83880; 84484; 85025; 85610; 85730; 93005; 96365; 96366; 99285; A9270; J1644

== ENCOUNTER 2025-01-09 14:12 | Emergency (ER) | payer MEDICARE, BC ==
[2025-01-09 14:27] LABS: BASOPHILS ABSOLUTE AUTO 0.0 x10^3/uL (0.0-0.2); BASOPHILS PERCENT AUTO 0.4 % (0.2-1.2); EOSINOPHILS ABSOLUTE AUTO 0.3 x10^3/uL (0.0-0.5); EOSINOPHILS PERCENT AUTO 3.2 % (0.0-4.0); IMMATURE GRAN ABSOLUTE AUTO 0.03 x10^3/uL (0.00-0.07); IMMATURE GRAN PERCENT AUTO 0.40 % (0.00-0.43); LYMPHOCYTES ABSOLUTE AUTO 2.6 x10^3/uL (1.0-4.8); LYMPHOCYTES PERCENT AUTO 33.2 % (25.0-50.0); MONOCYTES ABSOLUTE AUTO 0.8 x10^3/uL (0.0-0.8); MONOCYTES PERCENT AUTO 10.5 % (2.0-11.0); NEUTROPHILS ABSOLUTE AUTO 4.0 x10^3/uL (1.8-7.7); NEUTROPHILS PERCENT AUTO 52.3 % (50.0-80.0); PLATELET COUNT,PLT 178 x10^3/uL (130-400); RED BLOOD CELL COUNT 3.09 x10^6/uL (4.5-6.0); WHITE BLOOD CELL COUNT,WBC 7.7 x10^3/uL (4.0-10.0)
[2025-01-09 14:53] LABS: A/G RATIO 0.76; ALANINE AMINOTRANSFERASE,ALT 30 U/L (16-63); ASPARTATE AMNIOTRANSFERASE,AST 22 U/L (15-37); BILIRUBIN TOTAL 0.2 mg/dL (0.2-1.0); BLOOD UREA NITROGEN,BUN 51 mg/dL (7-18); CARBON DIOXIDE,CO2 25 mmol/L (21-32); CHLORIDE,CL 107 mmol/L (98-107); CREATININE 2.0 mg/dL (0.70-1.30); GLUCOSE RANDOM 126 mg/dL (70-99); POTASSIUM,K 3.7 mmol/L (3.5-5.1); PROTEIN TOTAL,TP 6.0 g/dL (6.4-8.2); SODIUM,NA 142 mmol/L (136-145)
[2025-01-09 14:55] LABS: ESTIMATED GFR 32 mL/min (>=60)
[2025-01-09 16:56] VITALS: BP 114/53; PULSE 31
== END 2025-01-09 16:45 | disposition short-term general hospital (02) ==
LOC: SUPCPDRO 14:12 → VM.ED 14:12
DX: R00.1 Bradycardia, unspecified (principal); I12.9 Hypertensive chronic kidney disease with stage 1 through stage 4 chronic kidney disease, or unspecified chronic kidney disease; N18.9 Chronic kidney disease, unspecified; I25.10 Atherosclerotic heart disease of native coronary artery without angina pectoris; E78.00 Pure hypercholesterolemia, unspecified; I25.2 Old myocardial infarction; J44.9 Chronic obstructive pulmonary disease, unspecified; K21.9 Gastro-esophageal reflux disease without esophagitis; Z88.5 Allergy status to narcotic agent; Z88.8 Allergy status to other drugs, medicaments and biological substances; Z79.01 Long term (current) use of anticoagulants; Z79.899 Other long term (current) drug therapy; Z95.5 Presence of coronary angioplasty implant and graft
CPT/HCPCS: 71045; 80053; 83735; 84443; 84484; 85025; 93005; 99285

== ENCOUNTER 2025-04-12 16:50 | Emergency (ER) | payer MEDICARE, BC ==
[2025-04-12 17:37] LABS: A/G RATIO 0.84; ALANINE AMINOTRANSFERASE,ALT 43 U/L (16-63); ASPARTATE AMNIOTRANSFERASE,AST 25 U/L (15-37); BILIRUBIN TOTAL 0.5 mg/dL (0.2-1.0); BLOOD UREA NITROGEN,BUN 26 mg/dL (7-18); CARBON DIOXIDE,CO2 23 mmol/L (21-32); CHLORIDE,CL 108 mmol/L (98-107); CREATININE 1.4 mg/dL (0.70-1.30); GLUCOSE RANDOM 103 mg/dL (70-99); POTASSIUM,K 4.4 mmol/L (3.5-5.1); PRO B-TYPE NATRIUR PEPT,BNPPRO 3364 pg/mL (<=450); PROTEIN TOTAL,TP 6.8 g/dL (6.4-8.2); SODIUM,NA 144 mmol/L (136-145)
[2025-04-12 17:42] LABS: ESTIMATED GFR 49 mL/min (>=60)
[2025-04-12 18:16] LABS: BASOPHILS ABSOLUTE AUTO 0.0 x10^3/uL (0.0-0.2); BASOPHILS PERCENT AUTO 0.5 % (0.2-1.2); EOSINOPHILS ABSOLUTE AUTO 0.1 x10^3/uL (0.0-0.5); EOSINOPHILS PERCENT AUTO 1.1 % (0.0-4.0); IMMATURE GRAN ABSOLUTE AUTO 0.02 x10^3/uL (0.00-0.07); IMMATURE GRAN PERCENT AUTO 0.30 % (0.00-0.43); LYMPHOCYTES ABSOLUTE AUTO 1.2 x10^3/uL (1.0-4.8); LYMPHOCYTES PERCENT AUTO 14.8 % (25.0-50.0); MONOCYTES ABSOLUTE AUTO 1.0 x10^3/uL (0.0-0.8); MONOCYTES PERCENT AUTO 12.9 % (2.0-11.0); NEUTROPHILS ABSOLUTE AUTO 5.6 x10^3/uL (1.8-7.7); NEUTROPHILS PERCENT AUTO 70.4 % (50.0-80.0); PLATELET COUNT,PLT 149 x10^3/uL (130-400); RED BLOOD CELL COUNT 3.54 x10^6/uL (4.5-6.0); WHITE BLOOD CELL COUNT,WBC 8.0 x10^3/uL (4.0-10.0)
[2025-04-12 18:26] VITALS: BP 167/80; PULSE 59
[2025-04-12] MEDS: Furosemide 40 MG/4 ML VIAL IV ONE (18:33)
== END 2025-04-12 18:39 | disposition home or self-care (01) ==
LOC: VM.ED 16:50
DX: I13.0 Hypertensive heart and chronic kidney disease with heart failure and stage 1 through stage 4 chronic kidney disease, or unspecified chronic kidney disease (principal); I50.9 Heart failure, unspecified; N18.9 Chronic kidney disease, unspecified; I25.2 Old myocardial infarction; E78.00 Pure hypercholesterolemia, unspecified; I25.10 Atherosclerotic heart disease of native coronary artery without angina pectoris; J44.9 Chronic obstructive pulmonary disease, unspecified; K21.9 Gastro-esophageal reflux disease without esophagitis; Z88.5 Allergy status to narcotic agent; Z88.8 Allergy status to other drugs, medicaments and biological substances; Z79.899 Other long term (current) drug therapy; Z79.01 Long term (current) use of anticoagulants; Z95.1 Presence of aortocoronary bypass graft
CPT/HCPCS: 71045; 80053; 83735; 83880; 84484; 85025; 93005; 96374; 99285; J1938; 36415; 93010; 99284